=== PATIENT | male | born 2000 | race Two or more races ===

== ENCOUNTER 2022-08-24 10:49 | Emergency (ER) | payer MEDICAID ==
[~2022-08-24] VITALS: Ht 175.3 cm; Wt 86.2 kg
[2022-08-24 11:57] VITALS: BP 123/72
--- NOTE | 2022-08-24 12:00 | NUR ---
ankle pain yesterday while running 12/02
[2022-08-24] MEDS ORDERED: IBUPROFEN 600 MG TABLET ONE (12:21)
[2022-08-24] MEDS ORDERED: IBUPROFEN 600 MG TABLET PO ONE (12:30)
--- NOTE | 2022-08-24 13:00 | NUR ---
A strap placed at right ankle, provided crutches , instruction given.
--- NOTE | 2022-08-24 13:17 | NUR ---
Patient discharged to home in stable condition wi. Written and verbal after care instructions given. Patient verbalizes understanding of instruction.
== END 2022-08-24 13:19 | disposition home or self-care (01) ==
LOC: ER 11:01
DX: S93.431A Sprain of tibiofibular ligament of right ankle, initial encounter (principal); X58.XXXA Exposure to other specified factors, initial encounter; Y93.02 Activity, running; Y92.89 Other specified places as the place of occurrence of the external cause; Y99.8 Other external cause status
CPT/HCPCS: 73610-TC

== ENCOUNTER 2024-09-24 20:53 | Emergency (ER) | payer MEDICAID, OTHER ==
[~2024-09-24] VITALS: Ht 177.8 cm; Wt 98.9 kg
[2024-09-24 22:17] LABS: APPEARANCE,URINE CLEAR (CLEAR); BILIRUBIN,URINE NEGATIVE (NEGATIVE); BLOOD, URINE NEGATIVE Ery/uL (NEGATIVE); COLOR,URINE YELLOW (YELLOW); KETONES,URINE NEGATIVE (NEGATIVE); LEUKOCYTE ESTERASE ,URINE NEGATIVE (NEGATIVE); NITRITE, URINE NEGATIVE (NEGATIVE); PROTEIN,URINE NEGATIVE (NEGATIVE); UGLUCOSE NEGATIVE (NEGATIVE); UROBILINOGEN,URINE 0.2 EU/dL (0.2)
[2024-09-24 23:19] VITALS: BP 124/82; TEMP 98.5; O2SAT 100
[2024-09-25] MEDS ORDERED: AZITHROMYCIN 250 MG TABLET ONE (00:19)
[2024-09-25] MEDS ORDERED: LIDOCAINE /MPF 1% VIAL 5 ML VIAL ONE (00:19)
[2024-09-25] MEDS ORDERED: CEFTRIAXONE 500 MG VIAL ONE (00:19)
[2024-09-25] MEDS: AZITHROMYCIN 250 MG TABLET PO ONE (00:25)
[2024-09-25] MEDS: CEFTRIAXONE 500 MG VIAL IM ONE (00:25)
== END 2024-09-25 02:18 | disposition home or self-care (01) ==
LOC: ER 20:55
DX: R30.0 Dysuria (principal)
CPT/HCPCS: 99283; 81003; 96372; J0696; J3490